=== PATIENT | male | born 1975 | race African-American/Black ===

== ENCOUNTER 2019-10-06 05:09 | Emergency (ER) | payer SELFPAY ==
[2019-10-06 05:09] VITALS: BP 150/85; PULSE 111; RESP 18; TEMP 36.6; O2SAT 95; BMI 21.5
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
[2019-10-06] MEDS: Diphth,Pertuss(Acell),Tet Vac 0.5 ML Vial IM (05:37)
[2019-10-06 06:38] VITALS: RESP 16
== END 2019-10-06 07:29 ==
PROVIDERS: Emergency Provider Emergency Medicine
DX: S01.01XA Laceration without foreign body of scalp, initial encounter (principal); F10.129 Alcohol abuse with intoxication, unspecified; F17.200 Nicotine dependence, unspecified, uncomplicated; V43.02XA Car driver injured in collision with other type car in nontraffic accident, initial encounter; Y93.I9 Activity, other involving external motion; Y92.89 Other specified places as the place of occurrence of the external cause; Y99.8 Other external cause status
CPT/HCPCS: 12002; 70450; 90471; 90715; 99285